=== PATIENT | female | born 1975 | race Two or more races ===

== ENCOUNTER 2017-06-08 13:07 | Emergency (ER) | payer OTHER ==
[~2017-06-08] VITALS: Ht 160 cm; Wt 85.3 kg
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
[~2017-06-08 13:07] MED LIST: COMPAZINE10 M1 PO
== END 2017-06-08 15:09 | disposition home or self-care (01) ==
LOC: CED 13:07
DX: S06.0X0A Concussion without loss of consciousness, initial encounter (principal); S16.1XXA Strain of muscle, fascia and tendon at neck level, initial encounter; E11.9 Type 2 diabetes mellitus without complications; I10 Essential (primary) hypertension; Z88.0 Allergy status to penicillin; V49.40XA Driver injured in collision with unspecified motor vehicles in traffic accident, initial encounter
CPT/HCPCS: 70450; 72072; 72125; 99284